=== PATIENT | male | born 1940 | race Caucasian/White ===

== ENCOUNTER 2022-11-11 15:59 | Day surgery (SDC) | payer OTHER, MEDICARE ==
[~2022-11-11 15:59] MED LIST: EPOETIN ALFA-EPBX 20,000 UNIT/ML 1 ML MDV IV ONE; albumin (human) 25% 100ml IV 100 ML IV PRN; heparin 1,000 units/ml 10ml inj IV ONE; heparin 1,000unit/ml 10ml vial 10 ML IV ONE
[2022-11-11] MEDS ORDERED: ipratropium 0.5 MG/2.5ML nebule IH PRN (16:00)
[2022-11-11] MEDS ORDERED: albuterol 2.5 MG/3 ML nebule NEB PRN (16:00)
[2022-11-11] MEDS ORDERED: heparin 1,000 units/ml 10ml inj HE ONE ×2 (16:00)
--- NOTE | 2022-11-11 16:00 | NUR ---
pt placed into bed 2006. vs 131/73-79-91% on 4 liters NC. pt's poon cleaned large amount of white purulent drainage removed. pt also had sm bm. coccyx dressing saturated with brown purulent drainage removed and clean one applied. heels floated to alleviate pressure on bilat heel wounds. nurse orthopedic at bedside and stat labs obtained Addendum: 11/11/22 at 1636 by Sonia Branch RN pt has no belongings and is DNR
[2022-11-11 16:31] LABS: HEMATOCRIT 32.1 % (42.0-52.0); HEMOGLOBIN 9.9 g/dl (14.0-17.9); MEAN CORPUSCULAR HEMOGLOBIN 24.3 PG (27.0-31.0); MEAN CORPUSCULAR HGB CONC 30.7 g/dL (33.0-36.5); MEAN CORPUSCULAR VOLUME 79.2 FL (78-98); MEAN PLATELET VOLUME 6.7 FL (7.4-10.4); PLATELET COUNT 277 X10'3 (140-440); RED BLOOD COUNT 4.06 X10'6 (4.70-6.10); RED CELL DISTRIBUTION WIDTH 19.2 % (11.5-14.5); WHITE BLOOD COUNT 12.5 X10'3 (4.5-11.0)
[2022-11-11 16:37] LABS: ALBUMIN 2.4 G/DL (3.4-5.0); ANION GAP 10 (8-16); BLOOD UREA NITROGEN 94 MG/DL (7-18); BUN/CREATININE RATIO 33.8 (5.4-32.0); CALCIUM 9.3 MG/DL (8.5-10.1); CHLORIDE 96 MMOL/L (99-107); CREATININE 2.78 MG/DL (0.60-1.10); GLUCOSE 182 MG/DL (70-104); POTASSIUM 5.4 MMOL/L (3.5-5.1); SODIUM 133 MMOL/L (135-145); TOTAL CARBON DIOXIDE 27.3 MMOL/L (24-32); eGFR 22 ML/MIN
--- NOTE | 2022-11-11 18:50 | NUR ---
Patient in 2006 currently receiving dialysis. BP 95/56 sating at 100 percent. Dialysis nurse at bedside.
--- NOTE | 2022-11-11 21:04 | NUR ---
Currently awaiting transport back to [facility]. BP 122/66
--- NOTE | 2022-11-11 22:30 | NUR ---
EMS at beside to transport patient back to [facility].
== END 2022-11-11 23:05 ==
LOC: TELEMED 15:59 → CICU 2S 16:00 → TELEMED 23:05
PROVIDERS: ATTEND Internal Medicine Critical Care Medicine
DX: N17.9 Acute kidney failure, unspecified (principal); N18.6 End stage renal disease
CPT/HCPCS: 36415; 80048; 85027; 94760; G0257; J1644; J7030; Q4081; G0378